=== PATIENT | male | born 1945 | race African-American/Black ===

== ENCOUNTER 2016-11-09 16:32 | Emergency (ER) | payer OTHER, MEDICAID ==
[~2016-11-09] VITALS: Ht 182.9 cm; Wt 82.0 kg
[2016-11-09] MEDS ORDERED: ACETAMINOPHEN 500MG TABLET PO ONE (21:00)
[2016-11-10 17:00] VITALS: BP 143/78
== END 2016-11-10 17:28 | disposition home or self-care (01) ==
LOC: ER 21:10
DX: B35.9 Dermatophytosis, unspecified (principal); G89.29 Other chronic pain; I10 Essential (primary) hypertension; E78.00 Pure hypercholesterolemia, unspecified; Z86.73 Personal history of transient ischemic attack (TIA), and cerebral infarction without residual deficits
CPT/HCPCS: 99283; J7030